=== PATIENT | male | born 1980 | race Hispanic/Latino ===

== ENCOUNTER 2022-04-29 03:00 | Emergency (ER) | payer MEDICARE, OTHER ==
[~2022-04-29] VITALS: Ht 154.9 cm; Wt 65.3 kg
[2022-04-29] MEDS ORDERED: TAMIFLU6 MG/1 ML PO (03:42)
[2022-04-29] MEDS ORDERED: CEPHALEXIN500 MG PO (03:43)
[2022-04-29] MEDS ORDERED: SODIUM CHLORIDE 0.9% 1000ML 2,000 ML IV STA (04:07)
[2022-04-29] MEDS ORDERED: SODIUM CHLORIDE 0.9% 1000ML 1,000 ML ONE (04:25)
[2022-04-29 05:10] VITALS: BP 130/86
== END 2022-04-29 05:10 | disposition home or self-care (01) ==
LOC: FSED 03:12
DX: S01.511A Laceration without foreign body of lip, initial encounter (principal); Y04.0XXA Assault by unarmed brawl or fight, initial encounter; Y92.89 Other specified places as the place of occurrence of the external cause
CPT/HCPCS: 12011; 99282; J7030

== ENCOUNTER 2024-05-22 18:12 | Emergency (ER) | payer MEDICARE ==
[~2024-05-22] VITALS: Ht 157.5 cm; Wt 58.5 kg
[~2024-05-22 18:12] MED LIST: CEPHALEXIN500 MG PO; TAMIFLU6 MG/1 ML PO
[2024-05-22 18:28] VITALS: PULSE 92; RESP 18; TEMP 98.5
[2024-05-22] MEDS ORDERED: OCUFLOX5 ML OU (18:38)
[2024-05-22 18:54] VITALS: BP 128/84; PULSE 92; RESP 18; TEMP 98.5; O2SAT 99
== END 2024-05-22 18:56 | disposition home or self-care (01) ==
LOC: FSED 18:16
DX: H10.9 Unspecified conjunctivitis (principal); Z86.79 Personal history of other diseases of the circulatory system
CPT/HCPCS: 99283